=== PATIENT | female | born 1975 | race African-American/Black ===

== ENCOUNTER → 2021-07-05 | Day surgery (SDC) | payer OTHER ==
[2021-06-28 16:08] VITALS: BMI 25.7
[2021-07-05 13:25] VITALS: TEMP 98
[2021-07-05 13:26] VITALS: BP 100/58; PULSE 60
== END | disposition home or self-care (01) ==
LOC: FASU-ENDO 10:15
PROVIDERS: ATTEND Internal Medicine Gastroenterology
PROC: 0DJD8ZZ Inspection of Lower Intestinal Tract, Via Natural or Artificial Opening Endoscopic (ICD-10-PCS; principal; 2021-07-05 12:30)
DX: Z12.11 Encounter for screening for malignant neoplasm of colon (principal); D64.9 Anemia, unspecified; K64.1 Second degree hemorrhoids; Q43.8 Other specified congenital malformations of intestine
CPT/HCPCS: 84703